=== PATIENT | female | born 1980 | race Asian ===

== ENCOUNTER 2017-09-16 10:03 | Outpatient (CLI) | payer BC ==
[2017-09-16 11:37] LABS: APPEARANCE,URINE CLEAR (CLEAR); BILIRUBIN,URINE NEGATIVE (NEGATIVE); BLOOD, URINE 1+ Ery/uL (NEGATIVE); COLOR,URINE YELLOW (YELLOW); KETONES,URINE NEGATIVE (NEGATIVE); LEUKOCYTE ESTERASE ,URINE TRACE (NEGATIVE); NITRITE, URINE POSITIVE (NEGATIVE); PROTEIN,URINE NEGATIVE (NEGATIVE); UGLUCOSE NEGATIVE (NEGATIVE); UROBILINOGEN,URINE 0.2 EU/dL (0.2)
[2017-09-16 11:43] LABS: BACTERIA,URINE Moderate /HPF (None Seen); SQUAMOUS EPITHELIAL CELL,UR Few /HPF (None Seen)
[2017-09-16 11:49] LABS: ALBUMIN 3.6 g/dL (3.4-5.0); BILIRUBIN,TOTAL 0.4 mg/dL (0.2-1.0); CALCIUM, SERUM 8.6 mg/dL (8.5-10.1); CREATININE 0.6 mg/dL (0.6-1.3); POTASSIUM 3.7 mmol/L (3.5-5.1); TOTAL PROTEIN, SERUM 7.6 g/dL (6.4-8.2)
[2017-09-16 12:00] LABS: FREE T4 (FREE THYROXINE) 1.01 ng/dL (0.76-1.46); THYROID STIMULATING HORMONE 1.275 uIU/mL (0.358-3.74)
[2017-09-16 12:06] LABS: BASOPHILS # (AUTO) 0.1 /CMM (0.0-0.2); BASOPHILS % (AUTO) 1.5 % (0.0-2.0); EOSINOPHILS % (AUTO) 1.7 % (0.0-6.0); HEMATOCRIT 41 % (33-45); HEMOGLOBIN 13.5 g/dL (11.5-14.8); LYMPHOCYTES # (AUTO) 2.4 /CMM (0.8-4.8); LYMPHOCYTES % (AUTO) 30.9 % (20.0-44.0); MEAN CORPUSCULAR HEMOGLOBIN 27 PG (26.0-33.0); MEAN CORPUSCULAR HGB CONC 33 g/dl (31.0-36.0); MEAN CORPUSCULAR VOLUME 82 fL (82-100); MONOCYTES # (AUTO) 0.4 /CMM (0.1-1.30); MONOCYTES % (AUTO) 5.2 % (2.0-12.0); NEUTROPHILS # (AUTO) 4.9 /CMM (1.8-8.9); NEUTROPHILS % (AUTO) 60.7 % (43.0-81.0); PLATELET COUNT (AUTO) 363 /CMM (150-450); RDW COEFFICIENT OF VARIATION 13.3 (11.5-15.0); RED BLOOD CELL COUNT(AUTO) 5.06 MIL/uL (4.0-5.2); WHITE BLOOD COUNT (AUTO) 7.9 K/uL (4.3-11.0)
== END 2017-09-16 23:59 | disposition home or self-care (01) ==
LOC: LAB 10:03
PROVIDERS: ATTEND Family Medicine
DX: Z00.01 Encounter for general adult medical examination with abnormal findings (principal)
CPT/HCPCS: 36415; 80053-TC; 80061-TC; 81000-TC; 82306; 84439-TC; 84443-TC; 85025-TC; 87086-TC; 87186-TC

== ENCOUNTER 2017-10-07 10:01 | Outpatient (CLI) | payer BC | END 2017-10-07 23:59 | disposition home or self-care (01) | LOC: LAB 10:01 | PROVIDERS: ATTEND Family Medicine | DX: Z12.4 Encounter for screening for malignant neoplasm of cervix (principal); Z11.3 Encounter for screening for infections with a predominantly sexual mode of transmission | CPT/HCPCS: 87491; 87591; 88142 ==

== ENCOUNTER 2019-03-02 08:50 | Outpatient (CLI) | payer BC ==
[2019-06-22] MEDS ORDERED: HYDR200T4 PO (10:31)
== END 2019-03-02 23:59 | disposition home or self-care (01) ==
LOC: CT 08:50
PROVIDERS: ATTEND Family Medicine
DX: R51 Headache (principal)
CPT/HCPCS: 70450-TC

== ENCOUNTER 2019-03-05 08:55 | Emergency (ER) | payer BC, OTHER ==
[~2019-03-05] VITALS: Ht 165.1 cm; Wt 90.7 kg
[2019-03-05] MEDS ORDERED: HYDROMORPHONE 1 MG/1 ML DISP.SYRIN ONE (08:57)
[2019-03-05] MEDS ORDERED: METOCLOPRAMIDE HCL 10 MG/2 ML VIAL ONE (08:57)
[2019-03-05] MEDS ORDERED: METOCLOPRAMIDE HCL 10 MG/2 ML VIAL IV ONE (09:00)
[2019-03-05] MEDS ORDERED: HYDROMORPHONE INJ 2 MG/ML DISP.SYRIN IV ONE (09:00)
[2019-03-05] MEDS ORDERED: IV NS 0.9% 500 ML BAG IV ONE (09:00)
--- NOTE | 2019-03-05 09:00 | NUR ---
Dizziness with nausea and vomiting x 4 days. Patient a/ox4, crying with pain on the head, breathing even and unlabored, no sob noted, needs attended. Kept comfortable.
[2019-03-05 09:05] LABS: BASOPHILS # (AUTO) 0.1 /CMM (0.0-0.2); BASOPHILS % (AUTO) 0.7 % (0.0-2.0); EOSINOPHILS % (AUTO) 1.4 % (0.0-6.0); HEMATOCRIT 42 % (33-45); HEMOGLOBIN 13.8 g/dL (11.5-14.8); LYMPHOCYTES # (AUTO) 5.9 /CMM (0.8-4.8); MEAN CORPUSCULAR HGB CONC 33 g/dl (31.0-36.0); MEAN CORPUSCULAR VOLUME 82 fL (82-100); MONOCYTES # (AUTO) 0.5 /CMM (0.1-1.30); MONOCYTES % (AUTO) 4.3 % (2.0-12.0); NEUTROPHILS # (AUTO) 5.6 /CMM (1.8-8.9); NEUTROPHILS % (AUTO) 45.6 % (43.0-81.0); PLATELET COUNT (AUTO) 329 /CMM (150-450); RED BLOOD CELL COUNT(AUTO) 5.08 MIL/uL (4.0-5.2); WHITE BLOOD COUNT (AUTO) 12.3 K/uL (4.3-11.0)
[2019-03-05 09:10] LABS: CREATININE 0.7 mg/dL (0.6-1.3)
[2019-03-05 09:11] LABS: POTASSIUM 2.8 mmol/L (3.5-5.1)
[2019-03-05 09:15] LABS: ALBUMIN 4.1 g/dL (3.4-5.0); BILIRUBIN,DIRECT 0.1 mg/dL (0.0-0.2); BILIRUBIN,TOTAL 0.3 mg/dL (0.2-1.0); TOTAL PROTEIN, SERUM 8.1 g/dL (6.4-8.2)
--- NOTE | 2019-03-05 09:37 | NUR ---
Patient had a ct on tuesday, per dr. jorge cancel the CT.
[2019-03-05] MEDS ORDERED: POTASSIUM CHLORIDE 20 MEQ TAB.PRT.SR PO ONE ×2 (09:39→10:00)
--- NOTE | 2019-03-05 10:27 | NUR ---
Patient stated she feels less dizzy and less pain, and she feels better. Symptoms has improved. Breathing even and unlabored, no sob noted. IV removed. Catheter intact and site benign. Pressure and 4x4 applied to site. No bleeding noted.Patient discharged to home in stable condition. Written and verbal after care instructions given. Patient verbalizes understanding of instruction.
[2019-03-05 10:31] VITALS: BP 113/75
== END 2019-03-05 10:31 | disposition home or self-care (01) ==
LOC: ER 09:01
DX: G43.909 Migraine, unspecified, not intractable, without status migrainosus (principal); E87.6 Hypokalemia
CPT/HCPCS: 36415; 80048; 80076; 85025; 96374; 96375; 99283; J1170; J2765; J7030; J7040

== ENCOUNTER 2019-03-19 12:51 | Outpatient (CLI) | payer BC ==
[2019-03-19] MEDS ORDERED: GADODIAMIDE 5 MMOL/10 ML VIAL IJ ONE (12:52)
[2019-06-22] MEDS ORDERED: HYDR200T4 PO (10:31)
== END 2019-03-19 23:59 | disposition home or self-care (01) ==
LOC: MRI 12:51
PROVIDERS: ATTEND Family Medicine
DX: R51 Headache (principal); M50.322 Other cervical disc degeneration at C5-C6 level; M50.223 Other cervical disc displacement at C6-C7 level; M48.02 Spinal stenosis, cervical region; M25.78 Osteophyte, vertebrae
CPT/HCPCS: 70553; 72141; A9579

== ENCOUNTER 2019-06-19 16:06 | Inpatient (IN) | payer BC, OTHER ==
[~2019-06-19] VITALS: Ht 165.1 cm; Wt 86.6 kg
--- NOTE | 2019-06-19 16:38 | NUR ---
BIBS FROM HOME TO ER BED 5. AAOX4. NOT IN RESP DISTRESS. AMBULATORY. CAME IN HEADACHE, DIZZYNESS WHICH STARTED LAST NIGHT. ALSO REPORT DIFFICULTY BREATHING WHEN LYING DOWN. PT WAS ALREADY TESTED FOR COVID, POSITIVE FOR COVID ON TUESDAY. PT IS AFEBRILE. MD WAS AT BEDSIDE FOR EVAL. AWAITING FURTHER ORDERS
[2019-06-19 17:15] LABS: BASOPHILS # (AUTO) 0.1 /CMM (0.0-0.2); BASOPHILS % (AUTO) 0.7 % (0.0-2.0); EOSINOPHILS % (AUTO) 1.8 % (0.0-6.0); HEMATOCRIT 43 % (33-45); HEMOGLOBIN 14.1 g/dL (11.5-14.8); LYMPHOCYTES # (AUTO) 3.1 /CMM (0.8-4.8); LYMPHOCYTES % (AUTO) 37.4 % (20.0-44.0); MEAN CORPUSCULAR HGB CONC 33 g/dl (31.0-36.0); MEAN CORPUSCULAR VOLUME 84 fL (82-100); MONOCYTES # (AUTO) 0.6 /CMM (0.1-1.30); MONOCYTES % (AUTO) 6.8 % (2.0-12.0); NEUTROPHILS # (AUTO) 4.4 /CMM (1.8-8.9); NEUTROPHILS % (AUTO) 53.3 % (43.0-81.0); PLATELET COUNT (AUTO) 491 /CMM (150-450); RED BLOOD CELL COUNT(AUTO) 5.12 MIL/uL (4.0-5.2); WHITE BLOOD COUNT (AUTO) 8.2 K/uL (4.3-11.0)
[2019-06-19] MEDS ORDERED: HYDROMORPHONE INJ 0.5 MG/0.5 ML SYRINGE IV ONE (17:30)
[2019-06-19] MEDS ORDERED: LEVOFLOXACIN 750 MG /D5W 150ML PIGGYBACK IV ONE (17:30)
[2019-06-19] MEDS ORDERED: FLAGYL/NS RTU 500 MG/100 ML PIGGYBACK IV ONE (17:30)
[2019-06-19 17:31] LABS: CARBON DIOXIDE 26 mmol/L (21-32); CHLORIDE 108 mmol/L (98-107); CREATININE 0.8 mg/dL (0.6-1.3); GLUCOSE 107 mg/dL (74-106); SODIUM SERUM 144 mmol/L (136-145); UREA NITROGEN, BLOOD 6 mg/dL (7-18)
[2019-06-19 17:43] LABS: APPEARANCE,URINE Clear (CLEAR); BILIRUBIN,URINE Negative (NEGATIVE); BLOOD, URINE Trace-lysed Ery/uL (NEGATIVE); COLOR,URINE Yellow (YELLOW); KETONES,URINE Negative (NEGATIVE); LEUKOCYTE ESTERASE ,URINE Trace (NEGATIVE); NITRITE, URINE Negative (NEGATIVE); PROTEIN,URINE Negative (NEGATIVE); UGLUCOSE Negative (NEGATIVE); UROBILINOGEN,URINE 0.2 EU/dL (0.2)
[2019-06-19 17:49] LABS: BACTERIA,URINE Few /HPF (None Seen); SQUAMOUS EPITHELIAL CELL,UR Few /HPF (None Seen)
[2019-06-19 17:53] LABS: ALANINE AMINOTRANSFERASE 28 U/L (12-78); ALBUMIN 4.1 g/dL (3.4-5.0); ALKALINE PHOSPHATASE 73 U/L (46-116); ASPARTATE AMINOTRANSFERASE 18 U/L (15-37); BILIRUBIN,DIRECT 0.1 mg/dL (0.0-0.2); BILIRUBIN,TOTAL 0.2 mg/dL (0.2-1.0); TOTAL PROTEIN, SERUM 8.3 g/dL (6.4-8.2)
[2019-06-19 17:58] LABS: D-DIMER 0.56 mg/L(FEU (0.17-0.50)
[2019-06-19 18:12] LABS: CREATINE KINASE, TOTAL 120 U/L (26-192); FERRITIN 106 ng/mL (8-388)
[2019-06-19 18:13] LABS: C-REACTIVE PROTEIN < 0.2 mg/dL (0.0-0.9)
[2019-06-19] MEDS ORDERED: ACETAMINOPHEN 325 MG TABLET ONE (18:27)
--- NOTE | 2019-06-19 18:29 | NUR ---
pt c/o headache. md made aware. verbal order received to give tylenol 650mg po x 1. noted and carried out.
[2019-06-19] MEDS ORDERED: ACETAMINOPHEN 325 MG TABLET PO ONE (18:30)
[2019-06-19] MEDS ORDERED: CT SWABBABLE VALVE TRANS SET 1 EA INFUS.SET MC ONE (18:49)
[2019-06-19] MEDS ORDERED: IV NS 0.9% 250 ML IV ONE (18:49)
[2019-06-19] MEDS ORDERED: IOHEXOL-350 100 ML VIAL IV ONE (18:49)
[2019-06-19] MEDS ORDERED: POTASSIUM CHLORIDE 20 MEQ TAB.PRT.SR PO ONE ×2 (18:57→19:00)
[2019-06-19] MEDS ORDERED: ONDANSETRON 4 MG TAB.RAPDIS ONE (18:57)
[2019-06-19] MEDS ORDERED: ONDANSETRON 4 MG TAB.RAPDIS SL ONE (19:00)
[2019-06-19 21:30] VITALS: BP 128/78
[2019-06-19] MEDS ORDERED: ACETAMINOPHEN 325 MG TABLET PO PRN (21:30)
[2019-06-19] MEDS ORDERED: ONDANSETRON HCL/PF 4 MG/2 ML VIAL IVP PRN (21:30)
[2019-06-19] MEDS ORDERED: ZOLPIDEM TARTRATE 5 MG TABLET PO PRN (21:30)
[2019-06-19] MEDS ORDERED: MORPHINE SULFATE INJ 2 MG/ML DISP.SYRIN IV PRN (21:30)
[2019-06-19] MEDS ORDERED: ALBUTEROL SULFATE 8 GM HFA.AER.AD IH PRN (21:30)
--- NOTE | 2019-06-19 21:30 | NUR ---
REPORT GIVEN CAROLYN MELO FOR ALMITA
--- NOTE | 2019-06-19 21:31 | NUR ---
RECEIVED REPORT FROM ER NURSE CUTLER FOR ALMITA
--- NOTE | 2019-06-19 21:35 | NUR ---
PT TRANSPORTED TO UNIT ON [facility] WITH EMT AND RN AT BEDSIDE W/ ACLS PROTOCOL. NAD NOTED. PT AMBULATED FROM RNEY TO BED ON STEADY GAIT W/O ANY DISTRESS
--- NOTE | 2019-06-19 21:36 | NUR ---
MANAGER POWER NOTE RECEIVED PATIENT FROM ER VIA GURNEY ACCOMPANIED BY 2 ER NURSES. PATIENT IS AOX4. ABLE TO MAKE NEEDS KNOWN. PATIENT CAME FROM HOME WITH DX OF PNA,COVID+. PATIENT IS AFEBRILE. PATIENT DENIES ANY PAIN OR DISCOMFORT AT THIS TIME. ON RA SATURATING 100% DENIES ANY SOB. BREATHING NORMAL RESPIRATION EVEN NON LABORED. EXTERNAL TELE MONITOR READING IN 60'S. RAC #20G INTACT PATENT FLUSHED WELL. NO SKIN ISSUES NOTED CONTINENT OF B&B. PATIENT ORIENTED TO ROOM AND EQUIPMENT. ABD SOFT AND NON DISTENDED. SAFETY MEASURES IN PLACE, BED IN LOW AND LOCKED POSITION. CALL LIGHT WITHIN REACH. WILL CONT TO MONITOR.
[2019-06-19 23:05] VITALS: BP 120/78
[2019-06-19] MEDS ORDERED: PIPERACILLIN /TAZOBACTAM 3.375 G VIAL IV ONE (23:11)
[2019-06-19] MEDS: PIPERACILLIN /TAZOBACTAM 3.375 G in IV D5W 50 ML IV SCH (23:19)
[2019-06-20] VITALS (10 sets, daily range): BP systolic 103–116; BP diastolic 60–75
--- NOTE | 2019-06-20 00:55 | NUR ---
0055 WENT TO PATIENT'S ROOM FOR C/O SOB WHILE LYING ON HER SIDE. PLACED PATIENT ON O2 AT 2L PER NC. O2 SATURATION 100% WHEN CHECKED. HOB ELEVATED FOR MAX OXYGENATION AND ENCOURAGED HER TO DO DEEP BREATHING EXERCISES. ENCOURAGED ALSO TO LIE DOWN IN PRONE POSITION TOLERATED. NO SIGNS OF RESPIRATORY DISTRESS NOTED. CALL LIGHT PLACED WITHIN HER REACH AND REMINDED TO CALL FOR ASSISTANCE.
[2019-06-20] MEDS ORDERED: PIPERACILLIN /TAZOBACTAM 3.375 G VIAL IV ONE (05:33)
[2019-06-20] MEDS: PIPERACILLIN /TAZOBACTAM 3.375 G in IV D5W 50 ML IV SCH (06:00)
--- NOTE | 2019-06-20 06:16 | NUR ---
INTENSIVE CARE MEDICINE SPECIALIST NOTE PATIENT RESTING IN BED NO C/O SOB. BREATHING NORMAL. ON OXYGEN 2L/MIN VIA NC SATURATING 98%. TELE MONITOR READING SR IN 60'S. IV SITE INTACT PATENT FLUSHING WELL. DENIES ANY PAIN OR DISCOMFORT. SKIN INTACT WARM AND DRY TO TOUCH. NO ACUTE CHANGES OCCURRED THROUGHOUT THE SHIFT. ALL NEEDS ATTENDED. KEPT CLEAN AND COMFORTABLE. SAFETY MEASURES IN PLACE, BED IN LOW AND LOCKED POSITION. CALL LIGHT WITHIN REACH. WILL ENDORSE PATIENT TO AM NURSE FOR ALMITA.
[2019-06-20 06:21] LABS: BASOPHILS % (AUTO) 0.5 % (0.0-2.0); EOSINOPHILS % (AUTO) 1.9 % (0.0-6.0); HEMATOCRIT 40 % (33-45); HEMOGLOBIN 13.1 g/dL (11.5-14.8); LYMPHOCYTES # (AUTO) 2.3 /CMM (0.8-4.8); LYMPHOCYTES % (AUTO) 25.2 % (20.0-44.0); MEAN CORPUSCULAR HGB CONC 33 g/dl (31.0-36.0); MEAN CORPUSCULAR VOLUME 83 fL (82-100); MONOCYTES # (AUTO) 0.7 /CMM (0.1-1.30); MONOCYTES % (AUTO) 7.7 % (2.0-12.0); NEUTROPHILS # (AUTO) 5.8 /CMM (1.8-8.9); NEUTROPHILS % (AUTO) 64.7 % (43.0-81.0); PLATELET COUNT (AUTO) 415 /CMM (150-450); RED BLOOD CELL COUNT(AUTO) 4.78 MIL/uL (4.0-5.2)
[2019-06-20 06:43] LABS: ALBUMIN 3.5 g/dL (3.4-5.0); BILIRUBIN,TOTAL 0.4 mg/dL (0.2-1.0); CALCIUM, SERUM 8.2 mg/dL (8.5-10.1); CREATININE 0.6 mg/dL (0.6-1.3); MAGNESIUM 2.3 mg/dL (1.8-2.4); PHOSPHORUS 3.7 mg/dL (2.5-4.9); POTASSIUM 3.3 mmol/L (3.5-5.1); TOTAL PROTEIN, SERUM 7.2 g/dL (6.4-8.2)
--- NOTE | 2019-06-20 07:52 | NUR ---
RN OPENING NOTES RECEIVED PT. IN BED. NO ACUTE DISTRESS NOTED. PT. ON 2L O2, VIA NC. A&OX4. PT. ON TELE MONITOR, SR NOTED. PT. IV ACCESS IN RIGHT AC, 20G, INTACT, PATENT, FLUSHED WELL. PT. SAFETY MAINTAINED, CALL LIGHT WITHIN REACH. WILL CONTINUE TO MONITOR.
[2019-06-20] MEDS ORDERED: GABA-534 PO (09:35)
[2019-06-20] MEDS ORDERED: TOPI50TA24 PO (09:35)
[2019-06-20] MEDS ORDERED: BACL20TA PO (09:35)
[2019-06-20] MEDS ORDERED: POTASSIUM CHLORIDE 20 MEQ TAB.PRT.SR PO SCH (10:00)
[2019-06-20] MEDS: HYDROXYCHLOROQUINE 200 MG TABLET PO SCH ×2 (11:01→20:32)
[2019-06-20] MEDS: ENOXAPARIN SODIUM 40 MG/0.4 ML DISP.SYRIN SQ SCH (11:10)
[2019-06-20] MEDS ORDERED: PIPERACILLIN /TAZOBACTAM 3.375 G in IV D5W 50 ML IV SCH (12:00)
[2019-06-20] MEDS ORDERED: LEVOFLOXACIN 750 MG /D5W 150ML 750 MG in PREMIX 1 EA IV SCH (18:00)
--- NOTE | 2019-06-20 18:28 | NUR ---
RN CLOSING NOTES PT. IN BED. NO ACUTE DISTRESS NOTED. PT. ON 2L O2, VIA NC, SATURATING WELL AT 97%. A&OX4. PT. ON TELE MONITOR, SR NOTED. PT. IV ACCESS IN RIGHT AC, 20G, INTACT, PATENT, FLUSHED WELL. PT. SAFETY MAINTAINED, CALL LIGHT WITHIN REACH. WILL ENDORSE PT. CARE TO PM NURSE.
--- NOTE | 2019-06-20 20:00 | NUR ---
FOXER NOTE RECEIVED PATIENT IN BED AWAKE. PATIENT IS AOX4. ABLE TO MAKE NEEDS KNOWN. PATIENT V/S STABLE AFEBRILE. PATIENT DENIES ANY PAIN OR DISCOMFORT AT THIS TIME. ON 2LITERS O2 VIA NC SATURATING 100% DENIES ANY SOB. BREATHING NORMAL RESPIRATION EVEN NON LABORED. TELE MONITOR READING IN 70'S. RAC #20G INTACT PATENT FLUSHED WELL.DUE MEDS GIVEN ORDERED. NO SKIN ISSUES NOTED CONTINENT OF B&B. SAFETY MEASURES IN PLACE, BED IN LOW AND LOCKED POSITION. CALL LIGHT WITHIN REACH. WILL CONT TO MONITOR. PRECAUTIONARY MEASURES OBSERVED AT ALL TIME .
[2019-06-21] VITALS: BP_SYST 105; BP_SYST 107; BP_DIAS 51; BP_DIAS 67
[2019-06-21 04:00] VITALS: BP 98/62
--- NOTE | 2019-06-21 05:43 | NUR ---
telephone answering service operator notes qtc reading at this time is.47
--- NOTE | 2019-06-21 05:44 | NUR ---
telescope repairer notes pts in bed awake ,stable v/s , afebrile remains on 2liters 0f o2 sating 100% no sob no distress noted ,will endorse to rn day shift for continuity of care.
[2019-06-21 06:44] LABS: BASOPHILS % (AUTO) 0.6 % (0.0-2.0); EOSINOPHILS % (AUTO) 2.7 % (0.0-6.0); HEMATOCRIT 40 % (33-45); HEMOGLOBIN 13.5 g/dL (11.5-14.8); LYMPHOCYTES # (AUTO) 2.6 /CMM (0.8-4.8); LYMPHOCYTES % (AUTO) 38.9 % (20.0-44.0); MEAN CORPUSCULAR HGB CONC 34 g/dl (31.0-36.0); MEAN CORPUSCULAR VOLUME 83 fL (82-100); MONOCYTES # (AUTO) 0.5 /CMM (0.1-1.30); MONOCYTES % (AUTO) 7.2 % (2.0-12.0); NEUTROPHILS # (AUTO) 3.4 /CMM (1.8-8.9); NEUTROPHILS % (AUTO) 50.6 % (43.0-81.0); PLATELET COUNT (AUTO) 419 /CMM (150-450); RED BLOOD CELL COUNT(AUTO) 4.86 MIL/uL (4.0-5.2); WHITE BLOOD COUNT (AUTO) 6.8 K/uL (4.3-11.0)
--- NOTE | 2019-06-21 07:10 | NUR ---
RN OPENING NOTE: Received patient in bed. Awake, alert and oriented x4. Patient able to make needs known. Tele monitoring showing sinus rhythm at 70s with hx of Sinus Bradycardia reported. Isolation precaution observed for COVID-19. Currently on Room air with 98-100% saturation noted. No SOB and not respiratory distress. IV site clean, dry, patent and intact. No pain noted, patient does not have any fever. Ambulatory without assistance. Call light in reach. Bed locked, low and at semi-chavarria's position. Side rails up x4. Safety ensured and observed. Will continue to monitor.
[2019-06-21 07:19] LABS: CALCIUM, SERUM 8.8 mg/dL (8.5-10.1); CREATININE 0.6 mg/dL (0.6-1.3); POTASSIUM 3.6 mmol/L (3.5-5.1)
[2019-06-21 08:00] VITALS: BP_SYST 107; BP_SYST 121; BP_DIAS 66; BP_DIAS 70
[2019-06-21] MEDS: GABAPENTIN 300 MG CAPSULE PO SCH (09:10)
[2019-06-21] MEDS: HYDROXYCHLOROQUINE 200 MG TABLET PO SCH ×2 (09:10→20:41)
[2019-06-21] MEDS: ENOXAPARIN SODIUM 40 MG/0.4 ML DISP.SYRIN SQ SCH (09:30)
[2019-06-21 12:00] VITALS: BP 115/82
[2019-06-21 16:00] VITALS: BP 119/74
[2019-06-21] MEDS: HYDROCODONE/APAP 5/325MG 1 EACH TABLET PO PRN (17:20)
--- NOTE | 2019-06-21 19:19 | NUR ---
Rn closing note: Patient in bed. Awake, alert and oriented x4. Patient able to make needs known. Tele monitoring showing sinus rhythm at 70s. Isolation precaution observed for COVID-19. Currently on Room air with 98-100% saturation noted. No SOB and not respiratory distress. IV site clean, dry, patent and intact. No pain noted, patient does not have any fever. Ambulatory without assistance. Call light in reach. Bed locked, low and at semi-chavarria's position. Side rails up x4. Safety ensured and observed. Endorsed to oncoming shift for ALMITA.
[2019-06-21 20:00] VITALS: BP 101/66
--- NOTE | 2019-06-21 20:00 | NUR ---
ESL TUTOR NOTE RECEIVED PATIENT IN BED AWAKE AND COMFORTABLE. AOX4. ABLE TO MAKE NEEDS KNOWN. PATIENT V/S STABLE AFEBRILE. PATIENT DENIES ANY PAIN OR DISCOMFORT AT THIS TIME. ON 2LITERS O2 VIA NC SATURATING 100% DENIES ANY SOB. BREATHING NORMAL RESPIRATION EVEN NON LABORED. TELE MONITOR READING IN 74. RAC #20G INTACT PATENT FLUSHED WELL.DUE MEDS GIVEN ORDERED PTS STILL ON PLAQUENIL. NO SKIN ISSUES NOTED ABLE TO GO TO BATHROOM. SAFETY MEASURES IN PLACE, BED IN LOW AND LOCKED POSITION. CALL LIGHT WITHIN REACH. WILL CONT TO MONITOR. COVID POSITIVE ,PRECAUTIONARY MEASURES OBSERVED AT ALL TIME .
[2019-06-22] VITALS: BP 96/58
[2019-06-22 04:00] VITALS: BP 100/62
[2019-06-22] MEDS: HYDROCODONE/APAP 5/325MG 1 EACH TABLET PO PRN (05:35)
--- NOTE | 2019-06-22 06:02 | NUR ---
EVENTS SPECIALIST NOTES PTS IN BED AWAKE AND RESPONSIVE REMAINS ON NC AT 2LITERS 02 SATING 100% ,PTS C/O OF HEADACHE NORCO GIVEN ORDERED WITH EFFECT ,ENDORSE TO RN DAY SHIFT FOR CONTINUITY OF CARE.PTS POSSIBLE DC TODAY.
[2019-06-22 06:50] LABS: BASOPHILS # (AUTO) 0.1 /CMM (0.0-0.2); BASOPHILS % (AUTO) 0.8 % (0.0-2.0); EOSINOPHILS % (AUTO) 2.6 % (0.0-6.0); HEMATOCRIT 39 % (33-45); HEMOGLOBIN 12.8 g/dL (11.5-14.8); LYMPHOCYTES # (AUTO) 2.6 /CMM (0.8-4.8); LYMPHOCYTES % (AUTO) 38.8 % (20.0-44.0); MEAN CORPUSCULAR HGB CONC 33 g/dl (31.0-36.0); MEAN CORPUSCULAR VOLUME 84 fL (82-100); MONOCYTES # (AUTO) 0.5 /CMM (0.1-1.30); MONOCYTES % (AUTO) 7.8 % (2.0-12.0); NEUTROPHILS # (AUTO) 3.3 /CMM (1.8-8.9); PLATELET COUNT (AUTO) 394 /CMM (150-450); RED BLOOD CELL COUNT(AUTO) 4.61 MIL/uL (4.0-5.2); WHITE BLOOD COUNT (AUTO) 6.7 K/uL (4.3-11.0)
[2019-06-22 07:04] LABS: CALCIUM, SERUM 8.3 mg/dL (8.5-10.1); CREATININE 0.7 mg/dL (0.6-1.3); POTASSIUM 3.6 mmol/L (3.5-5.1)
--- NOTE | 2019-06-22 07:20 | NUR ---
MANAGER OF SALES NOTE Received patient awake sitting in bed. No signs of distress. On RA tolerating well. No co pain or discomfort. Has RAC #20 flushed well. Sinus Rhythm 60s. Call light within reach. Bed locked and on lowest position. Will cont to monitor.
[2019-06-22 08:00] VITALS: BP 117/67
[2019-06-22] MEDS: GABAPENTIN 300 MG CAPSULE PO SCH (08:30)
[2019-06-22] MEDS: HYDROXYCHLOROQUINE 200 MG TABLET PO SCH (08:30)
[2019-06-22] MEDS: ENOXAPARIN SODIUM 40 MG/0.4 ML DISP.SYRIN SQ SCH (08:32)
[2019-06-22] MEDS ORDERED: HYDR200T4 PO (10:31)
--- NOTE | 2019-06-22 10:50 | NUR ---
AMMUNITION OFFICER NOTE Gave report to Ольга LEON for juliana.
--- NOTE | 2019-06-22 11:00 | NUR ---
RECEIVED PT RECEIVED PT FROM MIKA LEON. COVID +. PT WAS IN 3 [facility] THEN CAME BACK TO [facility] UNIT, BECAUSE DR. ROB WANTS TO CONTINUE WITH ISOLATION PRECAUTIONS UNTIL COVID IS RULED OUT. NO CARDIAC OR RESPIRATOPRY DISTRESS NOTED. NO COMPLAINTS OF PAIN OR DISCOMFORT AT THIS TIME. NO SOB NOTED. PT IS AFEBRILE WITH TEMP NOTED AT 98.2. PT DOES HAVE DRY COUGH, BUT DENIES ANY BODY OR MUSCLE ACHES. PT BROUGHT BACK TO ROOM 102. IN STABLE CONDITION. ON 4L OF O2 SATURATING AT 96%. WILL CONTINUE TO MONITOR. Addendum: 06/22/19 at 1627 by DO OMALLEY RN PLEASE DISREGARD NOTE ABOVE. IT WAS ENTERED ON THE INCORRECT PT.
[2019-06-22 12:00] VITALS: BP 116/72
[2019-06-22] MEDS ORDERED: POTASSIUM CHLORIDE 20 MEQ TAB.PRT.SR PO SCH (12:00)
--- NOTE | 2019-06-22 12:00 | NUR ---
REPOT TO DR. MARIYA MERAZ CALLED REGARDING PT, NOTIFIED MD THAT PT HAS NOT HAD ANY BOWEL MOVEMENTS THIS SHIFT YET/AM. HOWEVER, ALSO INFORMED MD THAT PTS STOOL FOR OB LAB RESULTS CAME BACK POSITIVE. IS AWARE. HOWEVER PER , NOTHING NEEDS TO BE DONE FOR NOW STINCE PT'S H AND H ARE STABLE AND IF NOT OVERT ACTIVE GI BLEED. ASKED MD IF NEED TO ODER PROTONIX, PER , ITS OKAY. NO NEED FOR NOW. PER DR. MERAZ, OKAY TO CONTINUE TO LET THE PT EAT, CONTINUE WITH IV IRON INFUSION, HOLD ANTICOAGULANTS AND IF NEEDED HE WILL THINK ABOUT TRANSFUSING PRBC TO KEEP HGB >7. WILL CONTINUE TO MONITOR PT. Addendum: 06/22/19 at 1627 by DO OMALLEY RN PLEASE DISREGARD NOTE ABOVE. IT WAS ENTERED ON THE INCORRECT PT.
--- NOTE | 2019-06-22 14:00 | NUR ---
D/C HOME PT WAS DISCHARGE HOME IN STABLE CONDITION. PT IS AOX4. NO CARDIAC OR RESPIRATORY DISTRESS NOTED. NO SOB NOTED. SATURATING WELL ON ROOM AIR. PT IS AMBULATORY. PT WAS PICKED UP BY HER UPON DISCHARGE. BODY CHECK WAS DONE PRIOR TO D/C. SKIN IS INTACT.IV ACCESS ON R AC WAS REMOVED. NO BLEEDING NOTED. ALL D/C INSTRUCTIONS PROVIDED TO THE PT. INFORMED PT THAT SHE WILL BE CONTINUING TO TAKE PLAQUENIL FOR 3 MORE DAYS. INFORMED PT TO INSIDE SALES PERSON HER MEDS AT HER PREFERRED PHARMACY. D/C PACKED/PAPER WORKS PROVIDED TO THE PT. ALSO EDUCATED PT TO MAKE A FOLLOW UP APPT WITH HER PRIMARY PHYSICIAN IN 1 WEEK. PT AGREED AND UNDERSTOOD ALL D/C INSTRUCTIONS PROVIDED.
== END 2019-06-22 14:00 | disposition home or self-care (01) | DRG 177 ==
LOC: ER 16:06 → TELE1 21:07
PROVIDERS: ADMIT Nurse Practitioner Acute Care; ATTEND Nurse Practitioner Acute Care
DX: U07.1 COVID-19 (principal); J12.89 Other viral pneumonia; N39.0 Urinary tract infection, site not specified; E87.6 Hypokalemia; E66.9 Obesity, unspecified; Z68.33 Body mass index [BMI] 33.0-33.9, adult; D47.3 Essential (hemorrhagic) thrombocythemia; R73.9 Hyperglycemia, unspecified; F41.9 Anxiety disorder, unspecified
CPT/HCPCS: 36415; 71045-TC; 80048-TC; 80053-TC; 80061-TC; 80076-TC; 81000-TC; 82550-TC; 82728-TC; 83605-TC; 83615-TC; 83735-TC; 84100-TC; 84484-TC; 84703-TC; 85025-TC; 85378-TC; 85730-TC; 86140-TC; 87040-TC; 87081-TC; 87086-TC; 93308-TC; A4216; G0378; J1650; J1956; J2270; J2543; J7040; J7050; J7060; Q0162; Q9967

== ENCOUNTER 2020-09-09 08:53 | Outpatient (CLI) | payer BC ==
[~2020-09-09 08:53] MED LIST: BACL20TA PO; GABA-534 PO; HYDR200T4 PO; TOPI50TA24 PO
== END 2020-09-09 23:59 | disposition home or self-care (01) ==
LOC: US 08:53
PROVIDERS: ATTEND Family Medicine
DX: N20.0 Calculus of kidney (principal); N88.8 Other specified noninflammatory disorders of cervix uteri
CPT/HCPCS: 76856-TC; 87086-TC; 87186-TC

== ENCOUNTER 2021-06-05 13:04 | Outpatient (CLI) | payer BC | END 2021-06-05 23:59 | disposition home or self-care (01) | LOC: MRI 13:04 | PROVIDERS: ATTEND Family Medicine | DX: M47.27 Other spondylosis with radiculopathy, lumbosacral region (principal); M51.17 Intervertebral disc disorders with radiculopathy, lumbosacral region; M51.15 Intervertebral disc disorders with radiculopathy, thoracolumbar region; M48.07 Spinal stenosis, lumbosacral region; M48.05 Spinal stenosis, thoracolumbar region | CPT/HCPCS: 72146-TC; 72148-TC ==

== ENCOUNTER 2021-06-23 09:08 | Outpatient (CLI) | payer BC | END 2021-06-23 23:59 | disposition home or self-care (01) | LOC: US 09:08 | PROVIDERS: ATTEND Family Medicine | DX: N88.8 Other specified noninflammatory disorders of cervix uteri (principal) | CPT/HCPCS: 76856-TC ==

== ENCOUNTER 2021-09-17 08:41 | Outpatient (CLI) | payer BC ==
[2021-09-17 09:25] LABS: BASOPHILS % (AUTO) 0.4 % (0.0-2.0); EOSINOPHILS % (AUTO) 2.7 % (0.0-6.0); HEMATOCRIT 39 % (33-45); HEMOGLOBIN 12.8 g/dL (11.5-14.8); LYMPHOCYTES # (AUTO) 2.5 K/uL (0.8-4.8); LYMPHOCYTES % (AUTO) 31.5 % (20.0-44.0); MEAN CORPUSCULAR HGB CONC 33 g/dl (31.0-36.0); MEAN CORPUSCULAR VOLUME 83 fL (82-100); MONOCYTES # (AUTO) 0.5 K/uL (0.1-1.30); MONOCYTES % (AUTO) 6.8 % (2.0-12.0); NEUTROPHILS # (AUTO) 4.6 K/uL (1.8-8.9); NEUTROPHILS % (AUTO) 58.6 % (43.0-81.0); PLATELET COUNT (AUTO) 292 K/uL (150-450); RED BLOOD CELL COUNT(AUTO) 4.65 MIL/uL (4.0-5.2); WHITE BLOOD COUNT (AUTO) 7.8 K/uL (4.3-11.0)
[2021-09-17 09:42] LABS: ALBUMIN 3.6 g/dL (3.4-5.0); BILIRUBIN,TOTAL 0.4 mg/dL (0.2-1.0); CALCIUM, SERUM 8.4 mg/dL (8.5-10.1); CREATININE 0.6 mg/dL (0.6-1.3); MAGNESIUM 2.4 mg/dL (1.8-2.4); POTASSIUM 3.5 mmol/L (3.5-5.1); TOTAL PROTEIN, SERUM 7.5 g/dL (6.4-8.2)
[2021-09-17 09:53] LABS: THYROID STIMULATING HORMONE 2.218 uIU/mL (0.358-3.74); URIC ACID 4.4 mg/dL (2.6-7.2)
[2021-09-17 10:11] LABS: BILIRUBIN,URINE NEGATIVE (NEGATIVE); COLOR,URINE YELLOW (YELLOW); LEUKOCYTE ESTERASE ,URINE SMALL (NEGATIVE); NITRITE, URINE POSITIVE (NEGATIVE); PROTEIN,URINE NEGATIVE (NEGATIVE); UGLUCOSE NEGATIVE (NEGATIVE); UROBILINOGEN,URINE 0.2 EU/dL (0.2)
[2021-09-17 11:33] LABS: BACTERIA,URINE Many /HPF (None Seen)
[2021-09-17 11:43] LABS: SQUAMOUS EPITHELIAL CELL,UR Few /HPF (None Seen)
== END 2021-09-17 23:59 | disposition home or self-care (01) ==
LOC: LAB 08:41
PROVIDERS: ATTEND Family Medicine
DX: Z00.01 Encounter for general adult medical examination with abnormal findings (principal); E55.9 Vitamin D deficiency, unspecified
CPT/HCPCS: 36415; 80053-TC; 80061-TC; 81001; 82306; 83735-TC; 84439-TC; 84443-TC; 84550-TC; 85025-TC; 87086-TC; 87186-TC

== ENCOUNTER 2021-09-28 09:20 | Outpatient (CLI) | payer BC | END 2021-09-28 23:59 | disposition home or self-care (01) | LOC: MRI 09:20 | PROVIDERS: ATTEND Family Medicine | DX: M48.02 Spinal stenosis, cervical region (principal); M47.812 Spondylosis without myelopathy or radiculopathy, cervical region; M25.78 Osteophyte, vertebrae; M48.8X2 Other specified spondylopathies, cervical region; M50.322 Other cervical disc degeneration at C5-C6 level | CPT/HCPCS: 72141-TC ==

== ENCOUNTER 2021-10-16 10:19 | Outpatient (CLI) | payer BC ==
[2021-10-16 11:22] LABS: BILIRUBIN,URINE NEGATIVE (NEGATIVE); COLOR,URINE YELLOW (YELLOW); LEUKOCYTE ESTERASE ,URINE SMALL (NEGATIVE); NITRITE, URINE POSITIVE (NEGATIVE); PROTEIN,URINE NEGATIVE (NEGATIVE); UGLUCOSE NEGATIVE (NEGATIVE); UROBILINOGEN,URINE 0.2 EU/dL (0.2)
[2021-10-16 12:50] LABS: BACTERIA,URINE Many /HPF (None Seen); SQUAMOUS EPITHELIAL CELL,UR Few /HPF (None Seen)
== END 2021-10-18 23:59 | disposition home or self-care (01) ==
LOC: LAB 10:19
PROVIDERS: ATTEND Family Medicine
DX: R31.29 Other microscopic hematuria (principal)
CPT/HCPCS: 81001; 87086-TC; 87186-TC

== ENCOUNTER 2022-03-23 09:30 | Outpatient (CLI) | payer BC | END 2022-03-23 23:59 | disposition home or self-care (01) | LOC: MRI 09:30 | PROVIDERS: ATTEND Family Medicine | DX: M51.27 Other intervertebral disc displacement, lumbosacral region (principal); M47.817 Spondylosis without myelopathy or radiculopathy, lumbosacral region; M48.07 Spinal stenosis, lumbosacral region | CPT/HCPCS: 72148-TC ==